=== PATIENT | male | born 1980 | race African-American/Black ===

== ENCOUNTER 2024-02-05 12:57 | Emergency (ER) | payer OTHER ==
[~2024-02-05] VITALS: Ht 180.3 cm; Wt 72.7 kg
[~2024-02-05 12:57] MED LIST: BENZ2TAB58 PO; DIVA-112 PO; FLUP25VI5 IM; LISI20TA PO; RISP3TAB35 PO
[2024-02-05] MEDS ORDERED: TRAZ-252 PO (13:05)
[2024-02-05 13:06] VITALS: TEMP 98
[2024-02-05 14:47] LABS: BASOPHILS % (AUTO) 0.6 % (0.0-2.0); EOSINOPHILS % (AUTO) 4.1 % (1.0-6.0); HEMATOCRIT 35.5 % (41-53); HEMOGLOBIN 11.7 g/dL (13.5-17.5); LYMPHOCYTES # (AUTO) 2.1 K/uL (1.0-4.8); LYMPHOCYTES % (AUTO) 43.8 % (22.0-44.0); MEAN CORPUSCULAR HGB CONC 32.9 G/dL (31.0-37.0); MEAN CORPUSCULAR VOLUME 94 fL (80-100); MONOCYTES # (AUTO) 0.6 K/uL (0.1-1.0); MONOCYTES % (AUTO) 11.8 % (2.0-9.0); NEUTROPHILS # (AUTO) 1.9 K/uL (1.8-7.7); NEUTROPHILS % (AUTO) 39.7 % (40.0-70.0); PLATELET COUNT (AUTO) 255 K/uL (150-450); RED BLOOD CELL COUNT(AUTO) 3.78 MIL/uL (4.50-5.90); RED CELL DISTRIBUTION WIDTH 14.9 % (11.5-14.5); WHITE BLOOD COUNT (AUTO) 4.8 K/uL (4.5-11.0)
[2024-02-05 15:10] LABS: ALCOHOL, BLOOD (SERUM) < 3 mg/dL (0-10)
[2024-02-05] MEDS ORDERED: LURA40TA2 PO (15:27)
[2024-02-05] MEDS ORDERED: QUET200T PO (15:27)
[2024-02-05 15:28] LABS: ANION GAP 7 mmol/L (8-16); CALCIUM, TOTAL 8.6 mg/dL (8.8-10.5); CARBON DIOXIDE 27 mmol/L (22-29); CHLORIDE 106 mmol/L (98-107); CREATININE 1.24 mg/dL (0.60-1.30); GLOMERULAR FILTR. RATE CALC > 60 mL/min (>60); GLUCOSE,RANDOM 91 mg/dL (70-110); POTASSIUM 4.3 mmol/L (3.5-5.1); SODIUM SERUM 140 mmol/L (136-145); UREA NITROGEN, BLOOD 28 mg/dL (7-18)
[2024-02-05 16:57] LABS: COVID AG,FIA SOURCE NASAL SWAB
[2024-02-05 17:20] LABS: SARS-COV2 (COVID) ANTIGEN,FIA Negative (Negative)
[2024-02-06 07:36] LABS: PH,URINE DRUG SCREEN 6.5 (5.0-8.0)
[2024-02-06 07:46] LABS: ALCOHOL, URINE DRUG SCREEN NEGATIVE (NEGATIVE); AMPHET/METH SCREEN,URINE POSITIVE (NEGATIVE); BARBITURATE SCREEN, URINE NEGATIVE (NEGATIVE); BENZODIAZEPINES SCREEN,URINE NEGATIVE (NEGATIVE); CANNABINOID SCREEN,URINE POSITIVE (NEGATIVE); COCAINE SCREEN,URINE NEGATIVE (NEGATIVE); METHADONE SCREEN, URINE NEGATIVE (NEGATIVE); OPIATE SCREEN,URINE NEGATIVE (NEGATIVE); PHENCYCLIDINE SCREEN,URINE NEGATIVE (NEGATIVE)
[2024-02-06 14:30] VITALS: BP 118/62; PULSE 74; RESP 18; O2SAT 99
== END 2024-02-06 16:34 | disposition home or self-care (01) ==
LOC: EMS 12:57
DX: F20.9 Schizophrenia, unspecified (principal); F12.90 Cannabis use, unspecified, uncomplicated; F17.210 Nicotine dependence, cigarettes, uncomplicated; Z59.00 Homelessness unspecified; Z79.899 Other long term (current) drug therapy; Z20.822 Contact with and (suspected) exposure to COVID-19
CPT/HCPCS: 99285; 87426; 80048; 85025; 36415; 80307; G0480

== ENCOUNTER 2024-03-11 15:34 | Inpatient (IN) | payer MEDICAID, OTHER ==
[~2024-03-11] VITALS: Ht 172.7 cm; Wt 68.2 kg
[~2024-03-11 15:34] MED LIST changes: +LURA40TA2 PO; +QUET200T PO; +TRAZ-252 PO
[2024-03-11 16:19] LABS: BASOPHILS % (AUTO) 0.5 % (0.0-2.0); EOSINOPHILS % (AUTO) 2.2 % (1.0-6.0); HEMATOCRIT 37.8 % (41-53); HEMOGLOBIN 12.9 g/dL (13.5-17.5); LYMPHOCYTES # (AUTO) 2.2 K/uL (1.0-4.8); LYMPHOCYTES % (AUTO) 47.7 % (22.0-44.0); MEAN CORPUSCULAR HEMOGLOBIN 31.6 pg (26.0-34.0); MEAN CORPUSCULAR VOLUME 93 fL (80-100); MONOCYTES # (AUTO) 0.6 K/uL (0.1-1.0); MONOCYTES % (AUTO) 11.7 % (2.0-9.0); NEUTROPHILS # (AUTO) 1.8 K/uL (1.8-7.7); NEUTROPHILS % (AUTO) 37.9 % (40.0-70.0); PLATELET COUNT (AUTO) 249 K/uL (150-450); RED BLOOD CELL COUNT(AUTO) 4.07 MIL/uL (4.50-5.90); RED CELL DISTRIBUTION WIDTH 15.1 % (11.5-14.5); WHITE BLOOD COUNT (AUTO) 4.7 K/uL (4.5-11.0)
[2024-03-11 16:24] LABS: ANION GAP 8 mmol/L (8-16); CALCIUM, TOTAL 9.1 mg/dL (8.8-10.5); CARBON DIOXIDE 29 mmol/L (22-29); CHLORIDE 104 mmol/L (98-107); CREATININE 1.17 mg/dL (0.60-1.30); GLOMERULAR FILTR. RATE CALC > 60 mL/min (>60); GLUCOSE,RANDOM 84 mg/dL (70-110); POTASSIUM 4.6 mmol/L (3.5-5.1); SODIUM SERUM 141 mmol/L (136-145); UREA NITROGEN, BLOOD 12 mg/dL (7-18)
[2024-03-11 16:29] LABS: COVID AG,FIA SOURCE NASAL SWAB
[2024-03-11 16:44] LABS: ALCOHOL, BLOOD (SERUM) 4 mg/dL (0-10)
[2024-03-11 16:56] LABS: SARS-COV2 (COVID) ANTIGEN,FIA Negative (Negative)
[2024-03-11] MEDS ORDERED: BENZ2TAB84 PO (17:03)
[2024-03-11] MEDS: HALOPERIDOL LACTATE 5 MG/ML VIAL IM ONE (17:41)
[2024-03-11] MEDS: DiphenhydrAMINE HCL 50 MG/ML VIAL IM ONE (17:41)
[2024-03-11] MEDS: LORazepam 2 MG/ML VIAL IM ONE (17:41)
[2024-03-11] MEDS ORDERED: ACETAMINOPHEN 325 MG TABLET PO PRN (17:45)
[2024-03-11] MEDS ORDERED: MAG HYDROX/ALUMINUM HYD/SIMETH ES 30 ML SUSPENSION UDCUP PO PRN (17:45)
[2024-03-11] MEDS ORDERED: LOPERAMIDE HCL 2 MG CAPSULE PO PRN (17:45)
[2024-03-11] MEDS ORDERED: MAGNESIUM HYDROXIDE SUSPENSION 30 ML UDCUP PO PRN (17:45)
[2024-03-11 18:00] LABS: APPEARANCE,URINE CLEAR (CLEAR); BILIRUBIN,URINE NEGATIVE (NEGATIVE); COLOR,URINE LIGHT YELLOW (YELLOW); GLUCOSE, URINE (UA) NEGATIVE (NEGATIVE); KETONES,URINE NEGATIVE (NEGATIVE); LEUKOCYTE ESTERASE ,URINE NEGATIVE (NEGATIVE); NITRATE,URINE NEGATIVE (NEGATIVE); OCCULT BLOOD,URINE NEGATIVE (NEGATIVE); PROTEIN,URINE 30-70 mg/dL (NEGATIVE); SPECIFIC GRAVITIY, URINE 1.022 (1.003-1.030)
[2024-03-11 18:08] LABS: ALCOHOL, URINE DRUG SCREEN NEGATIVE (NEGATIVE); AMPHET/METH SCREEN,URINE NEGATIVE (NEGATIVE); BARBITURATE SCREEN, URINE NEGATIVE (NEGATIVE); BENZODIAZEPINES SCREEN,URINE NEGATIVE (NEGATIVE); CANNABINOID SCREEN,URINE POSITIVE (NEGATIVE); COCAINE SCREEN,URINE NEGATIVE (NEGATIVE); METHADONE SCREEN, URINE NEGATIVE (NEGATIVE); OPIATE SCREEN,URINE NEGATIVE (NEGATIVE); PHENCYCLIDINE SCREEN,URINE NEGATIVE (NEGATIVE)
[2024-03-11 19:10] VITALS: O2SAT 98
[2024-03-11 23:16] VITALS: BP 109/68; PULSE 66; RESP 18; TEMP 98; O2SAT 100
[2024-03-12 08:05] VITALS: BP 110/68; PULSE 65; RESP 16; TEMP 98.3; O2SAT 99
[2024-03-12] MEDS ORDERED: PETROLATUM,WHITE 28 GM JELLY TP PRN (08:15)
[2024-03-12] MEDS ORDERED: ALBUTEROL SULFATE HFA 90 MCG/PUFF 8 GM INHALER IH PRN (08:15)
[2024-03-12] MEDS ORDERED: NICOTINE 14 MG/24 HOUR PATCH TD PRN (08:15)
[2024-03-12] MEDS ORDERED: MAGNESIUM HYDROXIDE SUSPENSION 30 ML UDCUP PO PRN (08:15)
[2024-03-12] MEDS ORDERED: LOPERAMIDE HCL 2 MG CAPSULE PO PRN (08:15)
[2024-03-12] MEDS ORDERED: CloNIDine HCL 0.1 MG TABLET PO PRN (08:15)
[2024-03-12] MEDS ORDERED: GuaiFENesin/D-METHORPHAN [SUGAR-FREE] 200-20MG/10 ML SYRUP UDCUP PO PRN (08:15)
[2024-03-12] MEDS ORDERED: IBUPROFEN 400 MG TABLET PO PRN (08:15)
[2024-03-12] MEDS ORDERED: ONDANSETRON 4 MG TABLET PO PRN (08:15)
[2024-03-12] MEDS ORDERED: DOCUSATE SODIUM 100 MG CAPSULE PO PRN (08:15)
[2024-03-12] MEDS ORDERED: MAG HYDROX/ALUMINUM HYD/SIMETH ES 30 ML SUSPENSION UDCUP PO PRN (08:15)
[2024-03-12] MEDS ORDERED: ACETAMINOPHEN 325 MG TABLET PO PRN (08:15)
[2024-03-12] MEDS: RisperiDONE 3 MG TABLET PO SCH (10:50)
[2024-03-12] MEDS: DIVALPROEX SODIUM 500 MG DR TABLET PO SCH (10:50)
[2024-03-12] MEDS: LORazepam 2 MG TABLET PO PRN (10:50)
[2024-03-12 20:38] VITALS: BP 119/82; PULSE 98; RESP 17; TEMP 97.6; O2SAT 100
[2024-03-12] MEDS: BENZTROPINE MESYLATE 2 MG TABLET PO SCH (20:58)
[2024-03-12] MEDS: TraZODone HCL 50 MG TABLET PO SCH (20:58)
[2024-03-12] MEDS: QUEtiapine FUMARATE 200 MG TABLET PO SCH (20:58)
[2024-03-12] MEDS: ZOLPIDEM TARTRATE 10 MG TABLET PO PRN (20:58)
[2024-03-13] MEDS: LURASIDONE HCL 40 MG TABLET PO SCH (06:13)
[2024-03-13 10:20] VITALS: BP 120/79; PULSE 104; RESP 16; TEMP 98.1; O2SAT 100
[2024-03-13 12:45] LABS: HEMOGLOBIN A1C 5.6 % (3.8-5.6)
[2024-03-13 13:00] LABS: CHOL/HDL RATIO 2.1 (4.2-7.3); THYROID STIMULATING HORMONE 0.38 uIU/mL (0.36-3.74)
[2024-03-13 20:27] VITALS: BP 99/62; PULSE 72; RESP 16; TEMP 98.6; O2SAT 93
[2024-03-14 09:05] VITALS: BP 129/82; PULSE 97; RESP 18; TEMP 97.4; O2SAT 99
[2024-03-14 20:32] VITALS: BP 98/68; PULSE 88; RESP 16; TEMP 97.8; O2SAT 99
[2024-03-15 08:10] VITALS: BP 106/68; PULSE 99; RESP 16; TEMP 98.3; O2SAT 100
[2024-03-15 20:07] VITALS: BP 106/68; PULSE 99; RESP 16; TEMP 98.3; O2SAT 100
[2024-03-16 09:07] VITALS: BP 113/89; PULSE 100; RESP 18; TEMP 98.2; O2SAT 99
[2024-03-16 21:18] VITALS: BP 119/76; PULSE 89; RESP 18; TEMP 97.6; O2SAT 99
[2024-03-17 08:10] VITALS: BP 109/65; PULSE 85; RESP 17; TEMP 97.7; O2SAT 100
[2024-03-17 20:00] VITALS: BP 106/74; PULSE 88; RESP 16; TEMP 98.1; O2SAT 99
[2024-03-18 08:58] VITALS: BP 126/75; PULSE 89; RESP 18; TEMP 97.9; O2SAT 100
[2024-03-18 20:30] VITALS: BP 132/84; PULSE 94; RESP 16; TEMP 98.2; O2SAT 99
[2024-03-19 08:00] VITALS: BP 116/78; PULSE 91; RESP 17; TEMP 96.8; O2SAT 99
[2024-03-19 20:00] VITALS: BP 128/87; PULSE 85; RESP 16; TEMP 98; O2SAT 100
[2024-03-20 08:41] VITALS: BP 115/73; PULSE 76; RESP 17; TEMP 98; O2SAT 98
[2024-03-20 20:20] VITALS: BP 100/60; PULSE 71; RESP 17; TEMP 97.2; O2SAT 98
[2024-03-21 10:31] VITALS: BP 107/70; PULSE 89; RESP 17; TEMP 98; O2SAT 98
[2024-03-21 20:10] VITALS: BP 101/72; PULSE 98; RESP 17; TEMP 97.8; O2SAT 97
[2024-03-22 08:11] VITALS: BP 114/64; RESP 15; TEMP 98.2; O2SAT 100
[2024-03-22 20:14] VITALS: BP 138/77; PULSE 100; RESP 17; TEMP 97.4; O2SAT 100
[2024-03-23 09:30] VITALS: BP 121/81; PULSE 85; RESP 16; TEMP 98; O2SAT 100
[2024-03-23] MEDS: HALOPERIDOL 5 MG TABLET PO PRN (11:28)
[2024-03-23 21:37] VITALS: BP 147/82; PULSE 77; RESP 16; TEMP 97.6; O2SAT 99
[2024-03-24 08:07] VITALS: BP 126/89; RESP 18; TEMP 97.5; O2SAT 100
[2024-03-24 21:14] VITALS: BP 126/83; PULSE 86; RESP 16; TEMP 98.2; O2SAT 99
[2024-03-25 08:40] VITALS: BP 124/78; PULSE 100; RESP 17; TEMP 97.7; O2SAT 99
[2024-03-25 20:51] VITALS: BP 120/73; PULSE 85; RESP 18; TEMP 97.6; O2SAT 99
[2024-03-25] MEDS: QUEtiapine FUMARATE 200 MG TABLET PO SCH (21:51)
[2024-03-26 08:38] VITALS: BP 127/80; PULSE 79; RESP 16; TEMP 97.5; O2SAT 100
[2024-03-27 03:54] VITALS: RESP 18
[2024-03-27 08:56] VITALS: BP 106/68; PULSE 84; RESP 16; TEMP 98.7; O2SAT 99
[2024-03-27] MEDS ORDERED: LORazepam 2 MG/ML VIAL ONE (12:12)
[2024-03-27] MEDS: DiphenhydrAMINE HCL 50 MG/ML VIAL IM ONE (12:19)
[2024-03-27] MEDS: HALOPERIDOL LACTATE 5 MG/ML VIAL IM ONE (12:19)
[2024-03-27] MEDS: LORazepam 2 MG/ML VIAL IM ONE (12:19)
[2024-03-27 21:43] VITALS: BP 108/66; PULSE 74; RESP 17; TEMP 98.1; O2SAT 96
[2024-03-28 10:26] VITALS: BP 116/78; PULSE 91; RESP 16; TEMP 98.5; O2SAT 98
[2024-03-28 22:36] VITALS: BP 99/63; PULSE 70; RESP 16; TEMP 98.1; O2SAT 100
[2024-03-29 09:03] VITALS: BP 118/81; PULSE 99; RESP 17; TEMP 97.9; O2SAT 98
[2024-03-29 20:53] VITALS: BP 90/60; PULSE 72; RESP 18; TEMP 97; O2SAT 96
[2024-03-30 11:31] VITALS: BP 135/60; PULSE 73; RESP 18; TEMP 97.5; O2SAT 98
[2024-03-30 21:59] VITALS: BP 136/85; PULSE 89; RESP 18; TEMP 97.8; O2SAT 98
[2024-03-31 09:11] VITALS: BP 117/72; PULSE 72; RESP 17; TEMP 98.6; O2SAT 99
[2024-03-31] MEDS ORDERED: QUET200T30 PO (20:03)
[2024-03-31] MEDS ORDERED: DIVA-112 PO (20:03)
[2024-03-31] MEDS ORDERED: LURA40TA2 PO (20:03)
[2024-03-31] MEDS ORDERED: TRAZ-252 PO (20:03)
[2024-03-31] MEDS ORDERED: RISP3TAB77 PO (20:03)
[2024-03-31] MEDS ORDERED: BENZ2TAB84 PO (20:03)
[2024-03-31 20:29] VITALS: BP 149/86; PULSE 196; RESP 19; TEMP 97.8; O2SAT 99
[2024-04-01 08:43] VITALS: BP 118/80; PULSE 74; RESP 17; TEMP 98
== END 2024-04-01 13:02 | disposition home or self-care (01) | DRG 750 ==
LOC: EMS 15:34 → B3A 22:41 → B2S 03-26 23:32
PROVIDERS: ADMIT Psychiatry & Neurology Psychiatry; ATTEND Psychiatry & Neurology Psychiatry
PROC: GZHZZZZ Group Psychotherapy (ICD-10-PCS; principal; 2024-03-12)
DX: F25.0 Schizoaffective disorder, bipolar type (principal); E11.9 Type 2 diabetes mellitus without complications; D64.9 Anemia, unspecified; F12.10 Cannabis abuse, uncomplicated; F17.210 Nicotine dependence, cigarettes, uncomplicated; F41.9 Anxiety disorder, unspecified; G47.00 Insomnia, unspecified; I10 Essential (primary) hypertension; Z20.822 Contact with and (suspected) exposure to COVID-19; N32.81 Overactive bladder; Z79.899 Other long term (current) drug therapy
CPT/HCPCS: 80048; 80061; 80164; 80307; 81003; 83036; 84443; 85025; G0480; J1200; J1630; J2060